=== PATIENT | male | born 1985 | race Caucasian/White ===

== ENCOUNTER 2024-02-13 20:39 | Emergency (ER) | payer OTHER ==
[2024-02-13] MEDS ORDERED: Lidocaine 1% with EPINEPHrine 1:100,000 20 ML MDV INFILT ONE (20:40)
== END 2024-02-13 22:21 | disposition home or self-care (01) ==
LOC: FB.ED 20:39
DX: S06.0X0A Concussion without loss of consciousness, initial encounter (principal); S01.02XA Laceration with foreign body of scalp, initial encounter; S60.222A Contusion of left hand, initial encounter; S70.01XA Contusion of right hip, initial encounter; V84.5XXA Driver of special agricultural vehicle injured in nontraffic accident, initial encounter
CPT/HCPCS: 12001; 70450; 72125; 72170; 73130-LT; 99284